=== PATIENT | female | born 1945 | race Caucasian/White ===

== ENCOUNTER 2016-08-12 11:14 | Emergency (ER) | payer OTHER ==
[~2016-08-12] VITALS: Ht 167.6 cm; Wt 91.4 kg
[~2016-08-12 11:14] MED LIST: ULTRAM50 MG PO; ZANTAC150 MG PO
[2016-08-12 11:59] LABS: EOSINOPHIL (%) 0.3 % (0-5); IMMATURE GRANULOCYTE (%) 0.1 % (0.0-0.7); IMMATURE GRANULOCYTE COUNT 0.1 K/uL; MCH 30.5 PG (29.0-34.0); MCHC 34.6 G/DL (30.0-36.0); MCV 88.2 FL (83-99); MEAN PLAT.VOLUME 9.8 uM^3 (9.5-12.4); MONOCYTE (%) 4.8 % (3-12); MONOCYTE COUNT 0.4 K/uL (0-0.8); NEUTROPHIL (%) 66.6 % (45-76); NEUTROPHIL COUNT 4.9 K/uL (1.8-6.4); PLATELET COUNT 306 K/uL (156-360); RBC DIS.WIDTH-SD 40.8 % (39-53); RED BLOOD COUNT 4.65 M/uL (3.80-5.20); WHITE BLOOD COUNT 7.3 K/uL (4.1-10.2)
[2016-08-12 12:17] LABS: CHLORIDE 106 mEq/L (99-109); POTASSIUM 3.9 mEq/L (3.7-5.4); SODIUM 141 mEq/L (136-147)
[2016-08-12 12:18] LABS: GLUCOSE 126 mg/dL (70-99)
[2016-08-12 12:20] LABS: ANION GAP 12 MEQ/L (2-14)
[2016-08-12 12:22] LABS: GFR ESTIMATE (CALCULATED) > 59 mL/min/
[2016-08-12 12:23] LABS: UREA NITROGEN (BUN) 10 mg/dL (9-23)
[2016-08-12 12:25] LABS: TROP-I INTERPRETATION NEGATIVE; TROPONIN-I < 0.01 ng/mL (0.0-0.30)
[2016-08-12 13:41] VITALS: BP 167/95
== END 2016-08-12 13:42 | disposition home or self-care (01) ==
LOC: EME → EDBD 11:14 → EME 13:42
PROVIDERS: Emergency Medicine
DX: R56.9 Unspecified convulsions (principal); Z98.890 Other specified postprocedural states
CPT/HCPCS: 70450; 71010; 80048; 84484; 85025; 93005; 99281; 99285